=== PATIENT | male | born 1990 | race Caucasian/White ===

== ENCOUNTER 2017-11-12 09:35 | Emergency (ER) | payer OTHER ==
[2017-11-12 09:40] VITALS: RESP 18; TEMP 98.4
[2017-11-12] MEDS ORDERED: SODIUM CHLORIDE 0.9% 1000ML 1,000 ML IV ONE (09:43)
[2017-11-12] MEDS ORDERED: ONDANSETRON HCL 4 MG/2 ML SOL IV ONE (09:43)
[2017-11-12] MEDS ORDERED: PANTOPRAZOLE SODIUM 40 MG/10 ML PDS IV ONE (09:43)
[2017-11-12] MEDS ORDERED: ONDANSETRON HCL 4 MG/2 ML SOL ONE (09:50)
[2017-11-12] MEDS ORDERED: PANTOPRAZOLE SODIUM 40 MG/10 ML PDS ONE (09:51)
[2017-11-12 09:57] LABS: BASOPHILS % (AUTO) 1 % (0-3); EOSINOPHILS % (AUTO) 0 % (0-9); HEMATOCRIT 44 % (39-53); MEAN CORPUSCULAR HGB CONC 34.1 gm/dl (32.0-36.0); MEAN CORPUSCULAR VOLUME 93 fL (80-100); MONOCYTES % (AUTO) 3.2 % (0-12); NEUTROPHILS % (AUTO) 91.5 % (37-80)
[2017-11-12] MEDS ORDERED: SODIUM CHLORIDE 0.9% FLUSH 10 ML SOL IV PRN (09:57)
[2017-11-12 10:06] LABS: APPEARANCE,URINE Cloudy; BILIRUBIN,URINE NEGATIVE (NEGATIVE); COLOR,URINE Light yellow; GLUCOSE, URINE (UA) NEGATIVE (NEGATIVE); KETONES,URINE NEGATIVE (NEGATIVE); LEUKOCYTE ESTERASE ,URINE NEGATIVE (NEGATIVE); NITRATE,URINE NEGATIVE (NEGATIVE); OCCULT BLOOD,URINE NEGATIVE (NEG-TRACE); PH,URINE 7.5; UROBILINOGEN,URINE 0.2 (0.2-1.0 EU)
[2017-11-12 10:13] LABS: ALBUMIN 4.2 gm/dl (3.4-5.0); ALT 29 IU/L (14-63); CALCIUM 8.7 mg/dl (8.5-10.1); GLOM FILT RATE 97 mL/min (>60); POTASSIUM 3.5 mMol/L (3.5-5.1); SODIUM 143 mMol/L (136-145)
[2017-11-12 10:17] LABS: AMPHETAMINES NEGATIVE (NEGATIVE); METHADONE NEGATIVE (NEGATIVE); OPIATES(OP13) NEGATIVE (NEGATIVE); OXYCODONE(OXY) NEGATIVE (NEGATIVE); PROPOXYPHENE(PPX) NEGATIVE (NEGATIVE); RBC,URINE 0-1 (0-3AV/HPF); TRICYCLIC ANTIDEPRESSANTS NEGATIVE (NEGATIVE); WBC,URINE 0-1 (0-5AV/HPF)
[2017-11-12] MEDS ORDERED: PROMETHAZINE HYDROCHLORIDE 25 MG/ML SOL IV ONE (10:32)
[2017-11-12] MEDS ORDERED: PROMETHAZINE HYDROCHLORIDE 25 MG/ML SOL ONE (10:35)
[2017-11-12 11:56] VITALS: BP 118/87; PULSE 72; O2SAT 99
[2017-11-12] MEDS ORDERED: CEPHALEXIN 250 MG/5 ML BOTTLE PO ONE (12:07)
[2017-11-12] MEDS ORDERED: CEPHALEXIN 250 MG/5 ML BOTTLE ONE ×2 (12:16→12:17)
== END 2017-11-12 12:29 | disposition home or self-care (01) | DRG 392 ==
LOC: ED 09:35
DX: R10.13 Epigastric pain (principal); N30.00 Acute cystitis without hematuria; R11.2 Nausea with vomiting, unspecified
CPT/HCPCS: 36415; 74177; 80053; 80305; 80307; 81001; 85025; 87088; 99285; J2405; J2550; Q9967; A9270-GY